=== PATIENT | female | born 1985 | race Caucasian/White ===

== ENCOUNTER → 2018-04-24 | Outpatient (CLI) | payer OTHER | LOC: FIMAGING 14:53 | PROVIDERS: ATTEND Advanced Practice Midwife | DX: O48.0 Post-term pregnancy (principal); Z3A.41 41 weeks gestation of pregnancy ==

== ENCOUNTER 2018-04-28 23:19 | Inpatient (IN) | payer OTHER ==
[2018-04-28] MEDS ORDERED: TERBUTALINE SULFATE 1 MG/ML VIAL IV PRN (23:28)
[2018-04-28] MEDS ORDERED: OLIVE OIL 118 ML BTL MISC PRN (23:28)
[2018-04-28] MEDS ORDERED: MISOPROSTOL 200 MCG TAB PR PRN (23:28)
[2018-04-28] MEDS ORDERED: EPSOM SALT 454 GM TP PRN (23:28)
[2018-04-28] MEDS ORDERED: OXYTOCIN/RINGERS LACTATE 1,000 ML IV PRN (23:28)
[2018-04-28] MEDS ORDERED: LIDOCAINE 1% 300 MG/30 ML SDV SC PRN (23:28)
[2018-04-28] MEDS ORDERED: LR 1,000 ML IV PRN (23:28)
[2018-04-28] MEDS ORDERED: IBUPROFEN 600 MG TAB PO PRN (23:28)
[2018-04-28] MEDS ORDERED: fentaNYL 200 MCG, BUPIVACAINE 0.5% 20 ML in NS 100 ML EP SCH (23:30)
[2018-04-28 23:39] LABS: PLATELET COUNT 185 10^3/uL (150-400)
[2018-04-28] MEDS ORDERED: OLIVE OIL 118 ML BTL ONE (23:40)
[2018-04-28] MEDS ORDERED: AMMONIA AROMATIC 1 EACH AMP IH ONE (23:40)
[2018-04-28] MEDS ORDERED: LIDOCAINE 1% 300 MG/30 ML SDV ONE (23:40)
[2018-04-28] MEDS ORDERED: MISOPROSTOL 200 MCG TAB ONE (23:41)
[2018-04-28] MEDS ORDERED: TERBUTALINE SULFATE 1 MG/ML VIAL ONE (23:41)
[2018-04-28] MEDS ORDERED: OXYTOCIN 10 UNIT/ML VIAL ONE (23:41)
[2018-04-29] MEDS ORDERED: PHENYLEPHRINE HCL 100 MCG/ML SYR ONE (00:09)
[2018-04-29] MEDS ORDERED: BUPIVACAINE 0.25% 30 ML SDV ONE (00:09)
--- NOTE | 2018-04-29 01:03 | PREANESOB ---
Obstetric Pre-Anesthesia Info - General Info Proposed Procedure: labor epidural : 2 Para: 0 CARMEN: 04/19/18 Gestational Age: 41 week(s) and 2 day(s) - Info Status: Full Term - Labor Status PIH: No Magnesium Sulfate in Use: No Indications for Labor Analgesia: Pain Control Labor Epidural: Proposed Anesthesia Allergies/Adverse Reactions: Allergy/AdvReac Type Severity Reaction Status Date / Time beeswax Allergy Verified 04/28/18 23:28 lanolin Allergy Verified 04/28/18 23:28 Visit Medications: Generic Name Dose Route Start Last Admin Trade Name Freq PRN Reason Stop Dose Admin Lactated Ringer's 1,000 mls @ 0 mls/hr 04/28/18 23:28 04/29/18 00:49 Lr IV 04/29/18 23:27 1,000 mls PRN PRN Administration SEE PROTOCOL CONDITIONS Protocol Per Protocol Oxytocin/Lactated Ringer's 1,000 mls @ 125 mls/hr 04/28/18 23:28 Pitocin 20 Units/Lr (Premix) IV PRN PRN Post bleeding Fentanyl 200 mcg/ Bupivacaine 100 mls @ 0 mls/hr 04/28/18 23:30 HCl 20 ml/ Sodium Chloride EP 05/08/18 23:29 CONT CLAU Protocol As Directed Ibuprofen 600 mg 04/28/18 23:28 Motrin PO ONCE PRN post , pain Lidocaine HCl 300 mg 04/28/18 23:28 Lidocaine Hcl 1% SC 10/25/18 23:27 ONCE PRN episiotomy Magnesium Sulfate 454 gm 04/28/18 23:28 Epsom Salt TP 10/25/18 23:27 Q1H PRN perineal discomfort Misoprostol 800 - 1,000 mcg 04/28/18 23:28 Cytotec NH ONCE PRN Vaginal Atony/Bleeding [place] Oil 118 ml 04/28/18 23:28 Sweet Oil MISC 10/25/18 23:27 ONCE PRN perineal massage Terbutaline Sulfate 0.25 mg 04/28/18 23:28 Brethine IV 10/25/18 23:27 ONCE PRN Tachysystole Discontinued Medications Generic Name Dose Route Start Last Admin Trade Name Freq PRN Reason Stop Dose Admin Ammonia (Aromatic Spirit) Confirm 04/28/18 23:40 Ammonia Aromatic Administered 04/28/18 23:41 Dose 1 each IH .STK-MED ONE Bupivacaine HCl Confirm 04/29/18 00:09 Sensorcaine 0.25% Sdv Administered 04/29/18 00:10 Dose 30 ml .ROUTE .STK-MED ONE Lidocaine HCl Confirm 04/28/18 23:40 Lidocaine Hcl 1% Administered 04/28/18 23:41 Dose 300 mg .ROUTE .STK-MED ONE Misoprostol Confirm 04/28/18 23:41 Cytotec Administered 04/28/18 23:42 Dose 1,000 mcg .ROUTE .STK-MED ONE [place] Oil Confirm 04/28/18 23:40 Sweet Oil Administered 04/28/18 23:41 Dose 118 ml .ROUTE .STK-MED ONE Oxytocin Confirm 04/28/18 23:41 Pitocin Administered 04/28/18 23:42 Dose 40 unit .ROUTE .STK-MED ONE Phenylephrine HCl Confirm 04/29/18 00:09 Neosynephrine Administered 04/29/18 00:10 Dose 1,000 mcg .ROUTE .STK-MED ONE Terbutaline Sulfate Confirm 04/28/18 23:41 Brethine Administered 04/28/18 23:42 Dose 1 mg .ROUTE .STK-MED ONE - Anesthesia History Response to Local Anesthetics: Not Applicable Anesthesia & Operative History: No Prior Problems Family Anesthesia History: Not Applicable - Vital Signs Height/Weight (Nursing): Height 167.64 cm Weight 66.224 kg - Focused Exam Neck exam: FROM Mallampati Score: Class 1 Mouth exam: normal dental/mouth exam Pulmonary: no respiratory distress Cardiovascular: regular rate and rhythym Labs: 04/28/18 23:30 Patient ABO/Rh O POSITIVE 04/28/18 23:44
--- NOTE | 2018-04-29 01:03 | POSTANESTH ---
Post Anesthetic Evaluation Cardiovascular Status: Normal, Stable Respiratory Status: Normal, Stable Level of Consciousness/Mental Status: Can Participate in Eval Pain Control: Adequate, Prn Tx Ordered Nausea/Vomiting Control: Adequate, Prn Tx Ordered Complications Possibly Related to Anesthesia: None Noted (labor epidural in place, patient comfortable)
[2018-04-29] MEDS: ONDANSETRON 4 MG/2 ML VIAL IVP PRN ×2 (01:47→05:03)
[2018-04-29] MEDS ORDERED: LR 500 ML IV SCH (03:30)
--- NOTE | 2018-04-29 05:47 | GHP ---
[f rep st] PREOP HISTORY AND PHYSICAL DATE OF ADMISSION: 04/28/2018 ADMITTING DIAGNOSIS: Intrauterine at 41 and 3/7 weeks' gestation in active labor. HISTORY OF PRESENT ILLNESS: The patient is a 33-year-old, 2, para 0-0-1-0 with a last menstr ual period of 07/13/2017, and an EDC of 04/19/2018, which was confirmed by first trimester ultrasound and short and irregular last menstrual. She has had her care at [facility]. She initially began having labor symptoms on the and labored through the day and evening of the . She had progressed to 4 cm and was having maternal exhaustion and increasing pain and desired to transfer to the hospital for pain control and augmentation of labor if needed. She presented to [facility] with her cervix 4 cm, bag of membranes intact. heart tones were 130s , reactive, moderate variability, category 1, and she was admitted in active labor for pain control a nd received an epidural. She has done well. [facility] and at approximately 4 a.m. she started to feel some pressure and was found to be compl ete and +2 and began pushing efforts. OBSTETRICAL COURSE: She began her care at [facility], and transferred to the [facility] at 22 weeks. She has had normal ultrasounds in this , normal labs in this p regnancy, normal postdates testing, and was 41 and 2/7 weeks' normal postdates testing and she went i nto labor spontaneously after membrane sweeping. PAST OBSTETRICAL HISTORY: She had 1 spontaneous miscarriage in 2009, and this is her 2nd , which was a planned . PAST GYNECOLOGICAL HISTORY: She had a short and irregular last menstrual period of 07/13/2017. She had menarche at age 13. She has normal duration of cycles 28-30 days, 3-5 days of light flow and min imal cramping. Significant history: She had a history of ANGELITA 3 and had a LEEP performed in 2011. N o other gynecological problems. No STDs or abnormal Paps since her LEEP. She has used control pills, and an IUD in the past. PAST MEDICAL HISTORY: None. She did have a fractured tympanic membrane with a long flight. PAST SURGICAL HISTORY: She had otoplasty in 1996 and hand surgery in 2003. No abdominal surgeries. ALLERGIES: No known drug allergies. SOCIAL HISTORY: She is . She lives with her supportive partner, Fito. Denies tobacco, alcoh ol, and drug use, and she has just completed nursing school 3 weeks ago from . FAMILY MEDICAL HISTORY: Maternal grandmother and aunt had mental illness, anxiety, depression. [facility] has hypertension, otherwise is negative. No significant cancer history. LABS: In this : She is O positive, antibody negative. RPR nonreactive. Rubella immune. HIV negative. Hepatitis B negative. Hep C nonreactive. Gonorrhea and chlamydia negative. She had a normal Pap in September 2018. Genetic screening has been negative, cystic fibrosis, SMA, and fragil e X included. One hour GTT was 103. She was diagnosed with anemia at 28 weeks with a hematocrit of 34.9. GBS is negative. REVIEW OF SYSTEMS: Negative except for pertinent positives above in HPI and active labor symptoms. SUBJECTIVE: On admission, she is afebrile. Vital signs are stable. Currently heart tones are 140s, reactive, moderate variability. She is having some decelerations with pushing. She is comple te and pushing. ASSESSMENT AND PLAN: A 33-year-old, G 2, P 0-0-1-0, in active labor for epidural and management. /[id number]/MODL
[2018-04-29] MEDS ORDERED: SIMETHICONE 80 MG TAB CHEW PO PRN (07:26)
[2018-04-29] MEDS ORDERED: oxyCODONE IR 5 MG TAB PO PRN (07:26)
[2018-04-29] MEDS ORDERED: HYDROCORTISONE 0.5% CREAM TP PRN (07:26)
[2018-04-29] MEDS ORDERED: HYDROCODONE/APAP 5/325 TAB PO PRN (07:26)
--- NOTE | 2018-04-29 07:32 | OBDEL ---
Info Type: Vaginal Presentation at Delivery: Vertex L&D Analgesia/Anesthesia Type: Epidural, Local (1% lidocaine) GBS+: No Intrapartum Medications: Generic Name Dose Route Start Last Admin Trade Name Freq PRN Reason Stop Dose Admin Lactated Ringer's 1,000 mls @ 0 mls/hr 04/28/18 23:28 04/29/18 00:49 Lr IV 04/29/18 23:27 1,000 mls PRN PRN Administration SEE PROTOCOL CONDITIONS Protocol Per Protocol Ondansetron HCl 4 mg 04/29/18 01:41 04/29/18 05:03 Zofran IVP 10/26/18 01:40 4 mg Q4HRS PRN Administration Nausea/Vomiting, Can't Take PO - Care Provider Evaluator/POST OFFICE MARKUP CLERK: Glen Reneley - Hospital Course Intrapartum: 04/29/18 07:29 Pt admitted for prodromal labor and pain management as a transfer from [facility]. She was admitted @ 4 cm, received an epidural. Srom @ 2:58 and quickly progressed to complete by 3:54. She had good pushing efforts for 2.5 hours, and baby developed tachycardia. We decided to assist with an outlet vacuum. I did 2 pulls wit 1 pop-off and performed a medial-lateral episiotomy and baby delivered. Vaginal Delivery - Delivery Provider Delivery Physician/CNM: Lety Holt - Labor and Delivery Onset of Contractions Date: 04/28/18 Onset of Contractions Time: 16:00 Onset of Contractions Type: Spontaneous Rupture of Membranes Date: 04/29/18 Rupture of Membranes Time: 02:58 Rupture of Membranes Type: Spontaneous Amniotic Fluid Color: Thick Meconium Dilation Complete Date: 04/29/18 Dilation Complete Time: 03:54 Placenta Delivery Date: 04/29/18 Placenta Delivery Time: 07:03 Total Hours of Labor: 15 Non-surgical Procedures: Episiotomy Episiotomy: Right Lateral Laceration: 2nd Degree Repair: 2-0, Vicryl Vaginal Sponge Count Correct: Yes Vaginal Needle Count Correct: Yes Vaginal Sweep Performed: Yes EBL: 250 Delivery Events: Nuchal Cord Cord Gases: Cord Gases Cord Blood PCO2 TNP 04/29/18 07:05 Cord Base Excess TNP 04/29/18 07:05 Cord ABG pH TNP 04/29/18 07:05 Cord VBG pH 7.33 (7.20-7.42) 04/29/18 07:05 Operative Report - Delivery Cord Gases: Cord Gases Cord Blood PCO2 TNP 04/29/18 07:05 Cord Base Excess TNP 04/29/18 07:05 Cord ABG pH TNP 04/29/18 07:05 Cord VBG pH 7.33 (7.20-7.42) 04/29/18 07:05 Assissted Delivery Assisted Delivery Type: Vacuum Station: Outlet Pop offs (Total): 1 Pulls (Total): 2 Assisted Delivery Comment: outlet vacuum performed secondary to tachycardia and maternal exhaustion. 2 pulls and 1 pop off, baby had a nuchal cord reduced at delivery and thick meconium was noted as well. Data CARMEN: 04/19/18 Gestational Age: 41 week(s) and 3 day(s) Vaughn Delivery Date: 04/29/18 Delivery Time: 06:59 Sex of : Male Score (1 Min): 8 Score (5 Min): 9 ICD10 Worksheet Patient Problems: Problems Problem Status Onset Vacuum extraction, delivered, current hospitalization Acute - ICD10 Problem Qualifiers (1) Vacuum extraction, delivered, current hospitalization
[2018-04-29] MEDS: IBUPROFEN 600 MG TAB PO PRN ×2 (14:37→20:27)
[2018-04-29] MEDS: DOCUSATE SODIUM 100 MG CAP PO PRN (20:27)
[2018-04-30] MEDS: IBUPROFEN 600 MG TAB PO PRN ×2 (03:50→10:13)
[2018-04-30 10:13] VITALS: BP 95/57
[2018-04-30] MEDS: DOCUSATE SODIUM 100 MG CAP PO PRN (10:14)
--- NOTE | 2018-04-30 11:01 | OBPP ---
Progress Note Assessment/Plan: Assessment: 1) s/p PPD # 1 - pt is stable 2) Anemia - pt is asymptomatic Plan: Continue routine pp care To work with today Start Bifera BID May want to go home today 04/30/18 11:02 Subjective/ Course: 04/30/18 11:00 Pt seen and examined. Doing well, no complaints. Some mild cramping, relief with Motrin. Mod lochia. Pt is OOB, karissa regular diet, and passing flatus. No BM yet. BF with some difficulty, baby is fussy. Denies any dizziness when OOB. 04/30/18 11:02 Objective: 04/30/18 04:35 Patient ABO/Rh O POSITIVE 04/28/18 23:44 Temp Pulse Resp BP Pulse Ox 36.0 C 85 16 95/57 L 95 04/30/18 10:12 04/30/18 10:12 04/29/18 20:00 04/30/18 10:12 04/30/18 10:12 Uterine Position/Fundal Height: Umbilicus -2 Uterine Tone: Firm Physical Exam - Physical Exam General Appearance: alert, no apparent distress, mild distress Respiratory: lungs clear, normal breath sounds Cardiac/Chest: regular rate, rhythm Abdomen: normal bowel sounds, non-tender, soft, flatus (+) Extremities: non-tender, normal inspection Skin: normal color, warm/dry Neuro/Psych: alert, normal mood/affect, oriented x 3
[2018-04-30] MEDS ORDERED: IRON POLYSAC/IRON HEME 28 MG TAB PO SCH (11:15)
== END 2018-04-30 19:43 | disposition home or self-care (01) | DRG 775 ==
LOC: FLD 23:19 → OBSVTOIN 23:19 → FOB 04-29 11:45
PROVIDERS: ADMIT Obstetrics & Gynecology; ATTEND Obstetrics & Gynecology
PROC: 10D07Z6 Extraction of Products of Conception, Vacuum, Via Natural or Artificial Opening (ICD-10-PCS; principal; 2018-04-29)
PROC: 0W8NXZZ Division of Female Perineum, External Approach (ICD-10-PCS; principal; 2018-04-29)
PROC: 0KQM0ZZ Repair Perineum Muscle, Open Approach (ICD-10-PCS; principal; 2018-04-29)
DX: O75.81 Maternal exhaustion complicating labor and delivery (principal); O76 Abnormality in fetal heart rate and rhythm complicating labor and delivery; O77.0 Labor and delivery complicated by meconium in amniotic fluid; O70.1 Second degree perineal laceration during delivery; O69.81X0 Labor and delivery complicated by cord around neck, without compression, not applicable or unspecified; O99.03 Anemia complicating the puerperium; Z3A.41 41 weeks gestation of pregnancy; Z37.0 Single live birth
CPT/HCPCS: J2370; J2405; J2590; J3010; J3105